=== PATIENT | male | born 1960 ===

== ENCOUNTER 2022-03-21 14:25 | Outpatient (NON) | payer OTHER, MEDICARE, SELFPAY | END 2022-03-21 14:26 | disposition home or self-care (01) | LOC: ANHLAB 14:26 | PROVIDERS: Visit Provider Nurse Practitioner | DX: C44.629 Squamous cell carcinoma of skin of left upper limb, including shoulder (principal) | CPT/HCPCS: 88305; 88331; 88332 ==